=== PATIENT | female | born 1970 | race Caucasian/White ===

== ENCOUNTER 2016-09-14 18:38 | Emergency (ER) | payer SELFPAY ==
[~2016-09-14] VITALS: Ht 162.6 cm; Wt 53.5 kg
[~2016-09-14 18:38] MED LIST: ALPRAZOLAM0.5 MG PO; BUSPAR15 MG PO; EFFEXOR XR150 MG PO; HYDROCODON-ACE1 EAC7 PO; Keppra PO; LEXAPRO20 MG PO; LIBRIUM25 MG PO; LORAZEPAM1 MG PO; Motrin PO; NAPROXEN500 MG PO; NOHOMEMEDS; REMERON30 M2 PO; RISPERDAL1 MG PO; SEROQUEL300 MG PO; THIAMINE HCL100 MG PO; THORAZINE200 MG PO; TRAZODONE HCL300 MG PO
[2016-09-14 19:57] LABS: HEMATOCRIT 44.9 % (36.0-46.0); MCH 31.9 PG (29.0-34.0); MCHC 33.6 G/DL (30.0-36.0); MCV 94.9 FL (83-99); MEAN PLAT.VOLUME 8.3 uM^3 (9.5-12.4); PLATELET COUNT 420 K/uL (156-360); RBC DIS.WIDTH-CV 13.9 % (11.8-14.6); RBC DIS.WIDTH-SD 49.1 % (39-53); RED BLOOD COUNT 4.73 M/uL (3.80-5.20); WHITE BLOOD COUNT 6.8 K/uL (4.1-10.2)
[2016-09-14 20:09] LABS: CHLORIDE 106 mEq/L (99-109); POTASSIUM 4.4 mEq/L (3.7-5.4); SODIUM 144 mEq/L (136-147)
[2016-09-14 20:11] LABS: GLUCOSE 107 mg/dL (70-99)
[2016-09-14 20:12] LABS: ANION GAP 12 MEQ/L (2-14)
[2016-09-14 20:15] LABS: GFR ESTIMATE (CALCULATED) > 59 mL/min/; UREA NITROGEN (BUN) 13 mg/dL (9-23)
[2016-09-14 20:18] LABS: TROP-I INTERPRETATION NEGATIVE; TROPONIN-I < 0.01 ng/mL (0.0-0.30)
[2016-09-14 21:50] LABS: ADD MIUA? YES; BILIRUBIN NEGATIVE; BLOOD MODERATE; COLOR STRAW ((YELLOW)); GLUCOSE (STRIP) NEGATIVE; KETONES NEGATIVE; LEUKOCYTES NEGATIVE; NITRITE NEGATIVE; PROTEIN (STRIP) 30; SPECIFIC GRAVITY 1.012 (1.000-1.030); UROBILINOGEN 0.2 MG/DL (0.2-1.0)
[2016-09-14 21:58] LABS: BACTERIA RARE /HPF; EPITHELIAL CELLS RARE /HPF; MUCUS TRACE /LPF; WHITE BLOOD CELLS 0-5 /HPF (0-5)
[2016-09-14 22:03] LABS: AMPHETAMINE NEGATIVE (500 ng/mL); BARBITURATES NEGATIVE (200 ng/mL); BENZODIAZEPINES PRESUMPTIVE POSITIVE (150 ng/mL); COCAINE NEGATIVE (150 ng/mL); INTERNAL CONTROLS VALID? YES; METHADONE NEGATIVE (200 ng/mL); METHAMPHETAMINE NEGATIVE (500 ng/mL); OPIATES (MORPHINE) NEGATIVE (100 ng/mL); OXYCODONE NEGATIVE (100 ng/mL); PHENCYCLIDINE NEGATIVE (25 ng/mL); PROPOXYPHENE NEGATIVE (300 ng/mL); THC CANNABINOIDS NEGATIVE (50 ng/mL); TRICYCLIC ANTIDEPRESSANTS NEGATIVE (300 ng/mL)
[2016-09-14 22:04] LABS: ADD MEDTOX COMMENT Y
[2016-09-14 22:11] VITALS: BP 139/100
[2016-09-14 22:28] LABS: BENZODIAZEPINES QUANT VALUE 0 NG/ML
[2016-09-14 22:32] LABS: BENZODIAZEPINES, URINE SCREEN Negative (200 ng/mL)
== END 2016-09-14 22:36 | disposition home or self-care (01) ==
LOC: EME → EDBD 18:38 → EME 22:36
PROVIDERS: Emergency Medicine
DX: S06.0X0A Concussion without loss of consciousness, initial encounter (principal); M54.2 Cervicalgia; W00.0XXA Fall on same level due to ice and snow, initial encounter; S00.83XA Contusion of other part of head, initial encounter; W19.XXXA Unspecified fall, initial encounter; Y92.002 Bathroom of unspecified non-institutional (private) residence as the place of occurrence of the external cause; F10.229 Alcohol dependence with intoxication, unspecified; F17.200 Nicotine dependence, unspecified, uncomplicated; Y90.8 Blood alcohol level of 240 mg/100 ml or more
CPT/HCPCS: 70450; 72125; 80048; 81003; 84484; 84999; 85027; 87086; 93005; 99281; 99284; G0480

== ENCOUNTER 2016-12-11 19:40 | Emergency (ER) | payer BC ==
[~2016-12-11] VITALS: Ht 152.4 cm; Wt 58.2 kg
[2016-12-11 20:30] LABS: CARBON DIOXIDE (BICARBONATE) 30.6 MEQ/L (20-31)
[2016-12-11 20:31] LABS: BASOPHIL COUNT 0.1 K/uL (0-0.1); EOSINOPHIL (%) 0.9 % (0-5); EOSINOPHIL COUNT 0.1 K/uL (0-0.3); HEMATOCRIT 40.9 % (36.0-46.0); IMMATURE GRANULOCYTE (%) 0.8 % (0.0-0.7); IMMATURE GRANULOCYTE COUNT 0.1 K/uL; INSTRUMENT ABS NEUTROPHIL CT 3.2 K/uL; LYMPHOCYTE COUNT 2.6 K/uL (1.0-2.8); MCH 33.8 PG (29.0-34.0); MCV 96.7 FL (83-99); MEAN PLAT.VOLUME 8.6 uM^3 (9.5-12.4); MONOCYTE (%) 7.9 % (3-12); MONOCYTE COUNT 0.5 K/uL (0-0.8); NEUTROPHIL (%) 49.3 % (45-76); NEUTROPHIL COUNT 3.2 K/uL (1.8-6.4); PLATELET COUNT 326 K/uL (156-360); RBC DIS.WIDTH-CV 12.2 % (11.8-14.6); RBC DIS.WIDTH-SD 43.4 % (39-53); RED BLOOD COUNT 4.23 M/uL (3.80-5.20); WHITE BLOOD COUNT 6.5 K/uL (4.1-10.2)
[2016-12-11 20:41] LABS: CHLORIDE 105 mEq/L (99-109); POTASSIUM 4.1 mEq/L (3.7-5.4); SODIUM 142 mEq/L (136-147)
[2016-12-11 20:43] LABS: GLUCOSE 103 mg/dL (70-99)
[2016-12-11 20:44] LABS: ANION GAP 13 MEQ/L (2-14)
[2016-12-11 20:45] LABS: TOTAL BILIRUBIN 0.2 mg/dL (0.0-1.0)
[2016-12-11 20:46] LABS: SERUM ETHYL ALCOHOL 396 mg/dL
[2016-12-11 20:47] LABS: GFR ESTIMATE (CALCULATED) > 59 mL/min/
[2016-12-11 20:48] LABS: ALKALINE PHOSPHATASE 60 IU/L (3-129)
[2016-12-11 20:49] LABS: UREA NITROGEN (BUN) 22 mg/dL (9-23)
[2016-12-11 20:50] LABS: SALICYLATE < 5.0 MG/DL (15-30)
[2016-12-11 20:52] LABS: LIPASE 59 U/L (1.0-51.0)
[2016-12-11 20:58] LABS: QUANTITATIVE HCG < 4.0 MIU/ML
[2016-12-11 22:36] LABS: ADD MIUA? YES; BILIRUBIN NEGATIVE; BLOOD MODERATE; COLOR YELLOW ((YELLOW)); GLUCOSE (STRIP) NEGATIVE; KETONES 5; LEUKOCYTES NEGATIVE; NITRITE NEGATIVE; PROTEIN (STRIP) NEGATIVE; SPECIFIC GRAVITY 1.015 (1.000-1.030); UROBILINOGEN 0.2 MG/DL (0.2-1.0)
[2016-12-11 22:46] LABS: BACTERIA NONE SEEN /HPF; EPITHELIAL CELLS 1+ /HPF; HYALINE CASTS 0-5 /LPF; MUCUS NONE SEEN /LPF; UCUL ADDED? NO; WHITE BLOOD CELLS 0-5 /HPF (0-5)
[2016-12-11 22:50] LABS: AMPHETAMINE NEGATIVE (500 ng/mL); BARBITURATES NEGATIVE (200 ng/mL); BENZODIAZEPINES NEGATIVE (150 ng/mL); COCAINE NEGATIVE (150 ng/mL); INTERNAL CONTROLS VALID? YES; METHADONE NEGATIVE (200 ng/mL); METHAMPHETAMINE NEGATIVE (500 ng/mL); OPIATES (MORPHINE) NEGATIVE (100 ng/mL); OXYCODONE NEGATIVE (100 ng/mL); PHENCYCLIDINE NEGATIVE (25 ng/mL); PROPOXYPHENE NEGATIVE (300 ng/mL); THC CANNABINOIDS NEGATIVE (50 ng/mL); TRICYCLIC ANTIDEPRESSANTS NEGATIVE (300 ng/mL)
[2016-12-12 01:32] VITALS: BP 139/93
== END 2016-12-12 01:33 | disposition home or self-care (01) ==
LOC: EME 19:40
PROVIDERS: Emergency Medicine
DX: F10.229 Alcohol dependence with intoxication, unspecified (principal); T50.991A Poisoning by other drugs, medicaments and biological substances, accidental (unintentional), initial encounter; R41.82 Altered mental status, unspecified; Y92.009 Unspecified place in unspecified non-institutional (private) residence as the place of occurrence of the external cause; Y90.8 Blood alcohol level of 240 mg/100 ml or more; F17.200 Nicotine dependence, unspecified, uncomplicated
CPT/HCPCS: 70450; 80053; 81003; 82803; 83690; 83735; 84702; 85025; 93005; 99281; 99285; G0480; J2060; J3411; J3475; J7030

== ENCOUNTER 2017-01-17 11:47 | Emergency (ER) | payer SELFPAY ==
[~2017-01-17] VITALS: Ht 162.6 cm; Wt 50.0 kg
[2017-01-17 12:26] LABS: EOSINOPHIL (%) 0 % (0-5); HEMATOCRIT 30.8 % (36.0-46.0); IMMATURE GRANULOCYTE (%) 0.6 % (0.0-0.7); LYMPHOCYTE COUNT 0.4 K/uL (1.0-2.8); MCH 33.1 PG (29.0-34.0); MCHC 35.1 G/DL (30.0-36.0); MCV 94.5 FL (83-99); MEAN PLAT.VOLUME 9.2 uM^3 (9.5-12.4); MONOCYTE (%) 14.7 % (3-12); MONOCYTE COUNT 0.8 K/uL (0-0.8); NEUTROPHIL (%) 76.8 % (45-76); PLATELET COUNT 86 K/uL (156-360); RBC DIS.WIDTH-CV 14.9 % (11.8-14.6); RBC DIS.WIDTH-SD 50.4 % (39-53); RED BLOOD COUNT 3.26 M/uL (3.80-5.20); WHITE BLOOD COUNT 5.2 K/uL (4.1-10.2)
[2017-01-17 12:39] LABS: CHLORIDE 95 mEq/L (99-109); SODIUM 132 mEq/L (136-147)
[2017-01-17 12:40] LABS: GLUCOSE 109 mg/dL (70-99)
[2017-01-17 12:42] LABS: ANION GAP 18 MEQ/L (2-14)
[2017-01-17 12:44] LABS: GFR ESTIMATE (CALCULATED) > 59 mL/min/; SERUM ETHYL ALCOHOL < 10 mg/dL
[2017-01-17 12:45] LABS: UREA NITROGEN (BUN) 17 mg/dL (9-23)
[2017-01-17 12:52] LABS: QUANTITATIVE HCG < 4.0 MIU/ML
[2017-01-17] MEDS ORDERED: LIBRIUM25 MG PO (17:10)
[2017-01-17] MEDS ORDERED: THIAMINE HCL100 MG PO (17:10)
[2017-01-17 19:13] VITALS: BP 114/99
== END 2017-01-17 19:28 | disposition home or self-care (01) ==
LOC: EME 11:47
PROVIDERS: Emergency Medicine
DX: F10.239 Alcohol dependence with withdrawal, unspecified (principal); D64.9 Anemia, unspecified; Z87.891 Personal history of nicotine dependence
CPT/HCPCS: 80048; 81003; 84702; 85025; 99281; 99285; G0480; J2060; J2405; J3411; J3475

== ENCOUNTER 2017-01-20 16:10 | Inpatient (IN) | payer OTHER ==
[~2017-01-20] VITALS: Ht 162.6 cm; Wt 53.4 kg
[2017-01-20 17:33] LABS: BASOPHIL COUNT 0.1 K/uL (0-0.1); EOSINOPHIL (%) 2.5 % (0-5); EOSINOPHIL COUNT 0.1 K/uL (0-0.3); IMMATURE GRANULOCYTE COUNT 0.1 K/uL; INSTRUMENT ABS NEUTROPHIL CT 2.1 K/uL; MCH 32.5 PG (29.0-34.0); MCHC 34.1 G/DL (30.0-36.0); MCV 95.2 FL (83-99); MEAN PLAT.VOLUME 9.7 uM^3 (9.5-12.4); MONOCYTE (%) 9.6 % (3-12); MONOCYTE COUNT 0.5 K/uL (0-0.8); NEUTROPHIL (%) 43.9 % (45-76); NEUTROPHIL COUNT 2.1 K/uL (1.8-6.4); RBC DIS.WIDTH-CV 15.4 % (11.8-14.6); RBC DIS.WIDTH-SD 52.9 % (39-53); RED BLOOD COUNT 3.57 M/uL (3.80-5.20); WHITE BLOOD COUNT 4.9 K/uL (4.1-10.2)
[2017-01-20 17:34] LABS: PLATELET COUNT 134 K/uL (156-360)
[2017-01-20 17:44] LABS: CHLORIDE 101 mEq/L (99-109)
[2017-01-20 17:47] LABS: GLUCOSE 89 mg/dL (70-99)
[2017-01-20 17:48] LABS: ANION GAP 12 MEQ/L (2-14); TOTAL BILIRUBIN 0.6 mg/dL (0.0-1.0)
[2017-01-20 17:49] LABS: SERUM ETHYL ALCOHOL < 10 mg/dL
[2017-01-20 17:50] LABS: ALKALINE PHOSPHATASE 101 IU/L (3-129); GFR ESTIMATE (CALCULATED) > 59 mL/min/
[2017-01-20 17:51] LABS: UREA NITROGEN (BUN) 12 mg/dL (9-23)
[2017-01-20 17:54] LABS: TROP-I INTERPRETATION NEGATIVE; TROPONIN-I < 0.01 ng/mL (0.0-0.30)
[2017-01-20 17:57] LABS: POTASSIUM 2.6 mEq/L (3.7-5.4); SODIUM 140 mEq/L (136-147)
[2017-01-20] MEDS ORDERED: TRAZODONE HCL300 MG PO (18:21)
[2017-01-20] MEDS ORDERED: REMERON45 MG PO (18:21)
[2017-01-20 20:01] LABS: MAGNESIUM 1.6 mg/dL (1.3-2.7)
[2017-01-20 20:09] LABS: LIPASE 273 U/L (1.0-51.0)
[2017-01-20 21:21] VITALS: BP 111/75
[2017-01-20 22:34] LABS: AMPHETAMINES QUANT VALUE 0 NG/ML; BARBITUATES QUANT VALUE 0 NG/ML; BENZODIAZEPINES, URINE SCREEN POSITIVE (200 ng/mL); MARIJUANA QUANT VALUE 0 NG/ML; OPIATES QUANTITATIVE VALUE 0 NG/ML; PHENCYCLIDINE QUANT VALUE 0 NG/ML
[2017-01-21 06:14] LABS: MAGNESIUM 1.9 mg/dl (1.3-2.7)
[2017-01-21 08:12] LABS: ANION GAP 12 MEQ/L (2-14); CHLORIDE 108 MEQ/L (99-109); GFR ESTIMATE (CALCULATED) > 59 mL/min/; GLUCOSE 94 mg/dL (70-99); POTASSIUM 3.1 MEQ/L (3.7-5.4); SODIUM 143 MEQ/L (136-147); UREA NITROGEN (BUN) 9 mg/dL (9-23)
[2017-01-21 08:24] LABS: HEMATOCRIT 28.6 % (36.0-46.0); MCH 32.8 PG (29.0-34.0); MCHC 33.6 G/DL (30.0-36.0); MCV 97.6 FL (83-99); MEAN PLAT.VOLUME 10.4 uM^3 (9.5-12.4); PLATELET COUNT 148 K/uL (156-360); RBC DIS.WIDTH-CV 16.1 % (11.8-14.6); RBC DIS.WIDTH-SD 55.8 % (39-53); RED BLOOD COUNT 2.93 M/uL (3.80-5.20); WHITE BLOOD COUNT 6.1 K/uL (4.1-10.2)
[2017-01-21 09:00] VITALS: BP 123/89
[2017-01-21 11:00] VITALS: BP 129/88
[2017-01-21 19:56] VITALS: BP 102/63
[2017-01-22 07:06] LABS: HEMATOCRIT 28.5 % (36.0-46.0); MCH 32.8 PG (29.0-34.0); MCV 99.3 FL (83-99); MEAN PLAT.VOLUME 9.4 uM^3 (9.5-12.4); PLATELET COUNT 185 K/uL (156-360); RBC DIS.WIDTH-SD 59.4 % (39-53); RED BLOOD COUNT 2.87 M/uL (3.80-5.20); WHITE BLOOD COUNT 5.2 K/uL (4.1-10.2)
[2017-01-22 07:31] VITALS: BP 115/71
[2017-01-22 07:31] LABS: ANION GAP 7 MEQ/L (2-14); CHLORIDE 111 MEQ/L (99-109); GFR ESTIMATE (CALCULATED) > 59 mL/min/; GLUCOSE 89 mg/dL (70-99); LIPASE 282 U/L (1.0-51.0); SAMPLE HEMOLYSIS CHECK 0; SAMPLE ICTERIC CHECK 0; SAMPLE LIPEMIA CHECK 0; SODIUM 143 MEQ/L (136-147); UREA NITROGEN (BUN) 11 mg/dL (9-23)
[2017-01-22 07:34] LABS: POTASSIUM 4.3 MEQ/L (3.7-5.4)
[2017-01-22] MEDS ORDERED: FOLIC ACID1 MG PO (10:45)
[2017-01-22] MEDS ORDERED: VITAMIN B-1100 MG PO (10:46)
[2017-01-22] MEDS ORDERED: THERAGRAN1 TABLET PO (10:46)
[2017-01-22] MEDS ORDERED: LIBRIUM25 MG PO (10:49)
== END 2017-01-22 13:30 | disposition home or self-care (01) | DRG 439 ==
LOC: EME 16:10 → EDOF 19:38 → 5SOUTH 19:38
PROVIDERS: Emergency Medicine; Internal Medicine; Nurse Practitioner Adult Health
PROC: HZ2ZZZZ Detoxification Services for Substance Abuse Treatment (ICD-10-PCS; principal; 2017-01-20)
DX: K85.81 Other acute pancreatitis with uninfected necrosis (principal); F10.231 Alcohol dependence with withdrawal delirium; F33.9 Major depressive disorder, recurrent, unspecified; E44.1 Mild protein-calorie malnutrition; E87.6 Hypokalemia; S90.512A Abrasion, left ankle, initial encounter; S40.211A Abrasion of right shoulder, initial encounter; F41.9 Anxiety disorder, unspecified; F43.20 Adjustment disorder, unspecified; G40.909 Epilepsy, unspecified, not intractable, without status epilepticus; W18.30XA Fall on same level, unspecified, initial encounter; Y92.9 Unspecified place or not applicable; Z86.59 Personal history of other mental and behavioral disorders; Z87.01 Personal history of pneumonia (recurrent); Z88.2 Allergy status to sulfonamides; Z68.20 Body mass index [BMI] 20.0-20.9, adult; Z56.0 Unemployment, unspecified; Z91.81 History of falling; Y90.0 Blood alcohol level of less than 20 mg/100 ml
CPT/HCPCS: 70450; 71010; 80048; 80053; 80306 90; 81003; 83690; 83735; 84484; 84702; 85025; 85027; 93005; 99281; 99285; G0480; J1650; J1885; J2060; J2405; J3411; J3475; J3480; J7030

== ENCOUNTER 2017-01-28 10:38 | Emergency (ER) | payer OTHER ==
[~2017-01-28] VITALS: Ht 162.6 cm; Wt 54.3 kg
[~2017-01-28 10:38] MED LIST changes: +FOLIC ACID1 MG PO; +REMERON45 MG PO; +THERAGRAN1 TABLET PO; +VITAMIN B-1100 MG PO
[2017-01-28 11:17] LABS: BASOPHIL COUNT 0.1 K/uL (0-0.1); EOSINOPHIL (%) 1.5 % (0-5); EOSINOPHIL COUNT 0.1 K/uL (0-0.3); HEMATOCRIT 33.4 % (36.0-46.0); IMMATURE GRANULOCYTE (%) 0.4 % (0.0-0.7); INSTRUMENT ABS NEUTROPHIL CT 3.3 K/uL; LYMPHOCYTE COUNT 3.1 K/uL (1.0-2.8); MCH 33.4 PG (29.0-34.0); MCHC 32.9 G/DL (30.0-36.0); MCV 101.5 FL (83-99); MEAN PLAT.VOLUME 8.7 uM^3 (9.5-12.4); MONOCYTE (%) 9.3 % (3-12); MONOCYTE COUNT 0.7 K/uL (0-0.8); NEUTROPHIL (%) 44.6 % (45-76); NEUTROPHIL COUNT 3.3 K/uL (1.8-6.4); RBC DIS.WIDTH-CV 17.3 % (11.8-14.6); RBC DIS.WIDTH-SD 63.4 % (39-53); RED BLOOD COUNT 3.29 M/uL (3.80-5.20); WHITE BLOOD COUNT 7.4 K/uL (4.1-10.2)
[2017-01-28 11:18] LABS: PLATELET COUNT 570 K/uL (156-360)
[2017-01-28 11:34] LABS: CHLORIDE 107 mEq/L (99-109); POTASSIUM 3.9 mEq/L (3.7-5.4); SODIUM 145 mEq/L (136-147)
[2017-01-28 11:35] LABS: GLUCOSE 97 mg/dL (70-99)
[2017-01-28 11:37] LABS: ANION GAP 11 MEQ/L (2-14)
[2017-01-28 11:38] LABS: SERUM ETHYL ALCOHOL 320 mg/dL
[2017-01-28 11:39] LABS: GFR ESTIMATE (CALCULATED) > 59 mL/min/
[2017-01-28 11:40] LABS: UREA NITROGEN (BUN) 16 mg/dL (9-23)
[2017-01-28 13:09] LABS: ADD MIUA? YES; BILIRUBIN NEGATIVE; BLOOD SMALL; COLOR STRAW ((YELLOW)); GLUCOSE (STRIP) NEGATIVE; KETONES NEGATIVE; LEUKOCYTES NEGATIVE; NITRITE NEGATIVE; PROTEIN (STRIP) NEGATIVE; UROBILINOGEN 0.2 MG/DL (0.2-1.0)
[2017-01-28 13:11] LABS: BACTERIA NONE SEEN /HPF; EPITHELIAL CELLS RARE /HPF; MUCUS NONE SEEN /LPF; RED BLOOD CELLS 0-5 /HPF (0-5); WHITE BLOOD CELLS 0-5 /HPF (0-5)
[2017-01-28 13:19] LABS: ADD MEDTOX COMMENT Y; AMPHETAMINE NEGATIVE (500 ng/mL); BARBITURATES NEGATIVE (200 ng/mL); BENZODIAZEPINES PRESUMPTIVE POSITIVE (150 ng/mL); COCAINE NEGATIVE (150 ng/mL); INTERNAL CONTROLS VALID? YES; METHADONE NEGATIVE (200 ng/mL); METHAMPHETAMINE NEGATIVE (500 ng/mL); OPIATES (MORPHINE) NEGATIVE (100 ng/mL); OXYCODONE NEGATIVE (100 ng/mL); PHENCYCLIDINE NEGATIVE (25 ng/mL); PROPOXYPHENE NEGATIVE (300 ng/mL); THC CANNABINOIDS NEGATIVE (50 ng/mL); TRICYCLIC ANTIDEPRESSANTS NEGATIVE (300 ng/mL)
[2017-01-28 14:11] LABS: BENZODIAZEPINES, URINE SCREEN POSITIVE (200 ng/mL)
[2017-01-29 01:06] VITALS: BP 143/100
== END 2017-01-29 01:08 | disposition home or self-care (01) ==
LOC: EME 10:38
PROVIDERS: Emergency Medicine
DX: F10.129 Alcohol abuse with intoxication, unspecified (principal); Y90.8 Blood alcohol level of 240 mg/100 ml or more; S00.83XA Contusion of other part of head, initial encounter; W19.XXXA Unspecified fall, initial encounter; Z87.891 Personal history of nicotine dependence
CPT/HCPCS: 70450; 70486; 80048; 81003; 84999; 85025; 90839; 99281; 99285; G0480

== ENCOUNTER 2017-03-06 13:13 | Inpatient (IN) | payer OTHER ==
[~2017-03-06] VITALS: Ht 160 cm; Wt 49.0 kg
[2017-03-06 14:53] LABS: HEMATOCRIT 31.5 % (36.0-46.0); MCHC 34.6 G/DL (30.0-36.0); MCV 101.3 FL (83-99); MEAN PLAT.VOLUME 8.6 uM^3 (9.5-12.4); PLATELET COUNT 161 K/uL (156-360); RBC DIS.WIDTH-CV 13.5 % (11.8-14.6); RBC DIS.WIDTH-SD 49.7 % (39-53); RED BLOOD COUNT 3.11 M/uL (3.80-5.20); WHITE BLOOD COUNT 12.8 K/uL (4.1-10.2)
[2017-03-06 15:02] LABS: CHLORIDE 90 mEq/L (99-109); POTASSIUM 5.3 mEq/L (3.7-5.4); SODIUM 128 mEq/L (136-147)
[2017-03-06 15:04] LABS: GLUCOSE 68 mg/dL (70-99)
[2017-03-06 15:05] LABS: ANION GAP 31 MEQ/L (2-14)
[2017-03-06 15:06] LABS: TOTAL BILIRUBIN 0.6 mg/dL (0.0-1.0)
[2017-03-06 15:07] LABS: SERUM ETHYL ALCOHOL < 10 mg/dL
[2017-03-06 15:08] LABS: ALKALINE PHOSPHATASE 94 IU/L (3-129); GFR ESTIMATE (CALCULATED) 17 mL/min/
[2017-03-06 15:09] LABS: UREA NITROGEN (BUN) 43 mg/dL (9-23)
[2017-03-06 15:11] LABS: LIPASE 85 U/L (1.0-51.0)
[2017-03-06 15:11] LABS: ADD MIUA? YES; BILIRUBIN NEGATIVE; BLOOD LARGE; COLOR YELLOW ((YELLOW)); GLUCOSE (STRIP) NEGATIVE; KETONES 80; LEUKOCYTES TRACE; NITRITE NEGATIVE; PROTEIN (STRIP) >=500; SPECIFIC GRAVITY 1.011 (1.000-1.030); UROBILINOGEN 0.2 MG/DL (0.2-1.0)
[2017-03-06 15:20] LABS: AMPHETAMINE NEGATIVE (500 ng/mL); BARBITURATES NEGATIVE (200 ng/mL); BENZODIAZEPINES PRESUMPTIVE POSITIVE (150 ng/mL); COCAINE NEGATIVE (150 ng/mL); INTERNAL CONTROLS VALID? YES; METHADONE NEGATIVE (200 ng/mL); METHAMPHETAMINE NEGATIVE (500 ng/mL); OPIATES (MORPHINE) NEGATIVE (100 ng/mL); OXYCODONE NEGATIVE (100 ng/mL); PHENCYCLIDINE NEGATIVE (25 ng/mL); PROPOXYPHENE NEGATIVE (300 ng/mL); THC CANNABINOIDS NEGATIVE (50 ng/mL); TRICYCLIC ANTIDEPRESSANTS NEGATIVE (300 ng/mL)
[2017-03-06 15:21] LABS: ADD MEDTOX COMMENT Y
[2017-03-06 15:55] LABS: BENZODIAZEPINES, URINE SCREEN POSITIVE (200 ng/mL)
[2017-03-06 16:01] LABS: EPITHELIAL CELLS 1+ /HPF; WHITE BLOOD CELLS 0-5 /HPF (0-5)
[2017-03-06 16:02] LABS: BACTERIA 1+ /HPF; CASTS PRESENT /LPF; CRYSTALS NONE SEEN; FINE GRANULAR CASTS 0-5 /LPF; MUCUS RARE /LPF
[2017-03-06 16:37] LABS: CHLORIDE 98 mEq/L (99-109); POTASSIUM 4.9 mEq/L (3.7-5.4); SODIUM 132 mEq/L (136-147)
[2017-03-06 16:39] LABS: GLUCOSE 74 mg/dL (70-99)
[2017-03-06 16:40] LABS: ANION GAP 28 MEQ/L (2-14)
[2017-03-06 16:43] LABS: GFR ESTIMATE (CALCULATED) 20 mL/min/
[2017-03-06 16:44] LABS: UREA NITROGEN (BUN) 39 mg/dL (9-23)
[2017-03-06 19:23] LABS: MAGNESIUM 1.6 mg/dL (1.3-2.7)
[2017-03-06] MEDS ORDERED: GABAPENTIN100 MG PO (19:57)
[2017-03-06] MEDS ORDERED: OLANZAPINE10 MG PO (19:58)
[2017-03-06] MEDS ORDERED: DESYREL 150 MG150 MG PO (19:59)
[2017-03-06] MEDS ORDERED: MIRTAZAPINE45 MG PO (20:00)
[2017-03-06] MEDS ORDERED: AMBIEN10 MG PO (20:13)
[2017-03-06] MEDS ORDERED: ALPRAZOLAM0.5 MG PO (20:16)
[2017-03-06 21:09] VITALS: BP 95/55
[2017-03-07 00:39] VITALS: BP 95/52
[2017-03-07 00:49] LABS: CHLORIDE 100 mEq/L (99-109); SODIUM 133 mEq/L (136-147)
[2017-03-07 00:53] LABS: ANION GAP 18 MEQ/L (2-14)
[2017-03-07 00:56] LABS: UREA NITROGEN (BUN) 31 mg/dL (9-23)
[2017-03-07 01:00] LABS: GFR ESTIMATE (CALCULATED) 34 mL/min/; GLUCOSE 107 mg/dL (70-99); POTASSIUM 3.8 mEq/L (3.7-5.4)
[2017-03-07 05:58] LABS: MCH 36.1 PG (29.0-34.0); MCV 100.3 FL (83-99); MEAN PLAT.VOLUME 9.8 uM^3 (9.5-12.4); PLATELET COUNT 146 K/uL (156-360); RBC DIS.WIDTH-CV 14.3 % (11.8-14.6); RBC DIS.WIDTH-SD 51.8 % (39-53); RED BLOOD COUNT 2.99 M/uL (3.80-5.20); WHITE BLOOD COUNT 6.6 K/uL (4.1-10.2)
[2017-03-07 06:35] LABS: ANION GAP 16 MEQ/L (2-14); CHLORIDE 103 MEQ/L (99-109); GLUCOSE 96 mg/dL (70-99); POTASSIUM 3.6 MEQ/L (3.7-5.4); SAMPLE HEMOLYSIS CHECK 0; SAMPLE ICTERIC CHECK 0; SAMPLE LIPEMIA CHECK 0; SODIUM 137 MEQ/L (136-147); UREA NITROGEN (BUN) 28 mg/dL (9-23)
[2017-03-07 06:45] LABS: GFR ESTIMATE (CALCULATED) 57 mL/min/
[2017-03-07 08:08] VITALS: BP 108/69
[2017-03-07] MEDS ORDERED: CEFTIN500 MG PO (11:13)
== END 2017-03-07 11:26 | disposition left against medical advice (07) | DRG 894 ==
LOC: EME 13:13 → EDOF 18:41 → 5SOUTH 18:41 → ENRESERV 18:43 → 5SOUTH 20:32
PROVIDERS: Emergency Medicine; Hospitalist
PROC: HZ2ZZZZ Detoxification Services for Substance Abuse Treatment (ICD-10-PCS; principal; 2017-03-06)
PROC: 0HQ0XZZ Repair Scalp Skin, External Approach (ICD-10-PCS; 2017-03-06)
DX: F10.239 Alcohol dependence with withdrawal, unspecified (principal); E87.1 Hypo-osmolality and hyponatremia; Z68.1 Body mass index [BMI] 19.9 or less, adult; E87.2 Acidosis; N17.9 Acute kidney failure, unspecified; N39.0 Urinary tract infection, site not specified; G40.509 Epileptic seizures related to external causes, not intractable, without status epilepticus; Y90.0 Blood alcohol level of less than 20 mg/100 ml; E83.51 Hypocalcemia; F31.9 Bipolar disorder, unspecified; F50.9 Eating disorder, unspecified; K29.20 Alcoholic gastritis without bleeding; K70.9 Alcoholic liver disease, unspecified; S01.01XA Laceration without foreign body of scalp, initial encounter; F41.9 Anxiety disorder, unspecified; W19.XXXA Unspecified fall, initial encounter; R00.0 Tachycardia, unspecified; Z82.49 Family history of ischemic heart disease and other diseases of the circulatory system; Z87.891 Personal history of nicotine dependence; Y92.9 Unspecified place or not applicable
CPT/HCPCS: 36600; 70450; 71250; 72125; 74176; 80048; 80048 91; 80053; 81003; 82803; 83690; 83735; 84443; 84999; 85027; 93005; 99281; 99285; G0480; J0610; J1630; J2060; J2405; J3411; J7030; J7050; S0028

== ENCOUNTER 2017-08-07 15:20 | Emergency (ER) | payer OTHER ==
[~2017-08-07] VITALS: Ht 160 cm; Wt 64.2 kg
[~2017-08-07 15:20] MED LIST changes: +AMBIEN10 MG PO; +CEFTIN500 MG PO; +DESYREL 150 MG150 MG PO; +GABAPENTIN100 MG PO; +MIRTAZAPINE45 MG PO; +OLANZAPINE10 MG PO
[2017-08-07 16:43] VITALS: BP 145/93
== END 2017-08-07 16:30 | disposition left against medical advice (07) ==
LOC: EME 15:20
DX: R51 Headache (principal); Z53.21 Procedure and treatment not carried out due to patient leaving prior to being seen by health care provider; F17.200 Nicotine dependence, unspecified, uncomplicated; F32.9 Major depressive disorder, single episode, unspecified; F41.9 Anxiety disorder, unspecified; Z88.2 Allergy status to sulfonamides
CPT/HCPCS: 99281; 99284

== ENCOUNTER 2017-08-13 08:40 | Emergency (ER) | payer OTHER ==
[~2017-08-13] VITALS: Ht 162.6 cm; Wt 55.2 kg
[2017-08-13 09:07] LABS: BASOPHIL (%) 0.8 % (0-1); EOSINOPHIL COUNT 0.2 K/uL (0-0.3); HEMATOCRIT 39.4 % (36.0-46.0); IMMATURE GRANULOCYTE (%) 0.4 % (0.0-0.7); LYMPHOCYTE (%) 40.8 % (15-42); LYMPHOCYTE COUNT 2.2 K/uL (1.0-2.8); MCH 36.8 PG (29.0-34.0); MCHC 35.5 G/DL (30.0-36.0); MCV 103.7 FL (83-99); MONOCYTE (%) 13.4 % (3-12); MONOCYTE COUNT 0.7 K/uL (0-0.8); NEUTROPHIL (%) 41.6 % (45-76); NEUTROPHIL COUNT 2.2 K/uL (1.8-6.4); PLATELET COUNT 179 K/uL (156-360); RBC DIS.WIDTH-CV 16.4 % (11.8-14.6); RBC DIS.WIDTH-SD 61.8 % (39-53); WHITE BLOOD COUNT 5.3 K/uL (4.1-10.2)
[2017-08-13 09:17] LABS: ALBUMIN 4.6 g/dL (3.2-4.8); CHLORIDE 93 mEq/L (99-109); POTASSIUM 3.2 mEq/L (3.7-5.4); SODIUM 134 mEq/L (136-147)
[2017-08-13 09:20] LABS: GLUCOSE 105 mg/dL (70-99)
[2017-08-13 09:24] LABS: ALKALINE PHOSPHATASE 144 IU/L (3-129); CREATININE 0.9 mg/dL (0.6-1.3); GFR ESTIMATE (CALCULATED) > 59 mL/min/; TOTAL BILIRUBIN 1.1 mg/dL (0.0-1.0); UREA NITROGEN (BUN) 7 mg/dL (9-23)
[2017-08-13 09:25] LABS: AST (GOT) 330 IU/L (2-34)
[2017-08-13 09:26] LABS: ALT (GPT) 179 IU/L (3-49)
[2017-08-13 09:32] LABS: QUANTITATIVE HCG < 4.0 MIU/ML
[2017-08-13 09:34] LABS: SERUM ETHYL ALCOHOL 140 mg/dL
[2017-08-13 11:04] LABS: APPEARANCE SL.HAZY ((CLEAR)); BILIRUBIN NEGATIVE; BLOOD MODERATE; COLOR STRAW ((YELLOW)); GLUCOSE (STRIP) NEGATIVE; KETONES NEGATIVE; LEUKOCYTES NEGATIVE; NITRITE NEGATIVE; PROTEIN (STRIP) NEGATIVE; UROBILINOGEN 0.2 MG/DL (0.2-1.0)
[2017-08-13 11:10] LABS: BACTERIA NONE SEEN /HPF; EPITHELIAL CELLS 1+ /HPF; MUCUS NONE SEEN /LPF; RED BLOOD CELLS 0-5 /HPF (0-5); UCUL ADDED? NO; WHITE BLOOD CELLS 0-5 /HPF (0-5)
[2017-08-13] MEDS ORDERED: ZOFRAN ODT4 MG PO (11:25)
[2017-08-13 11:36] VITALS: BP 129/72
== END 2017-08-13 11:37 | disposition home or self-care (01) ==
LOC: EME 08:40
PROVIDERS: Physician Assistant
DX: R19.7 Diarrhea, unspecified (principal); R74.8 Abnormal levels of other serum enzymes; E87.6 Hypokalemia; F41.9 Anxiety disorder, unspecified; F32.9 Major depressive disorder, single episode, unspecified; F17.200 Nicotine dependence, unspecified, uncomplicated; Z88.2 Allergy status to sulfonamides
CPT/HCPCS: 74177; 80053; 81003; 84702; 85025; 93005; 99281; 99285; G0480; J2405; J7030

== ENCOUNTER 2017-09-16 15:52 | Emergency (ER) | payer OTHER ==
[~2017-09-16] VITALS: Ht 162.6 cm; Wt 57.2 kg
[~2017-09-16 15:52] MED LIST changes: +ZOFRAN ODT4 MG PO
[2017-09-16 16:22] LABS: HEMATOCRIT 35.7 % (36.0-46.0); HEMOGLOBIN 12.8 G/DL (11.9-15.5); MCH 38.2 PG (29.0-34.0); MCHC 35.9 G/DL (30.0-36.0); MCV 106.6 FL (83-99); PLATELET COUNT 222 K/uL (156-360); RBC DIS.WIDTH-CV 15.4 % (11.8-14.6); RBC DIS.WIDTH-SD 60.5 % (39-53); RED BLOOD COUNT 3.35 M/uL (3.80-5.20); WHITE BLOOD COUNT 11.2 K/uL (4.1-10.2)
[2017-09-16 16:36] LABS: ALBUMIN 3.6 g/dL (3.2-4.8); CHLORIDE 104 mEq/L (99-109); POTASSIUM 3.8 mEq/L (3.7-5.4); SODIUM 141 mEq/L (136-147)
[2017-09-16 16:38] LABS: GLUCOSE 99 mg/dL (70-99)
[2017-09-16 16:40] LABS: TOTAL BILIRUBIN 0.6 mg/dL (0.0-1.0)
[2017-09-16 16:42] LABS: ALKALINE PHOSPHATASE 170 IU/L (3-129); CREATININE 0.8 mg/dL (0.6-1.3); GFR ESTIMATE (CALCULATED) > 59 mL/min/
[2017-09-16 16:43] LABS: UREA NITROGEN (BUN) 6 mg/dL (9-23)
[2017-09-16 16:44] LABS: AST (GOT) 255 IU/L (2-34)
[2017-09-16 16:45] LABS: ALT (GPT) 128 IU/L (3-49); LIPASE 48 U/L (1.0-51.0)
[2017-09-16 16:51] LABS: QUANTITATIVE HCG < 4.0 MIU/ML
[2017-09-16] MEDS ORDERED: ZOFRAN4 MG PO (17:20)
[2017-09-16 17:22] LABS: APPEARANCE CLEAR ((CLEAR)); BILIRUBIN NEGATIVE; BLOOD MODERATE; COLOR YELLOW ((YELLOW)); GLUCOSE (STRIP) NEGATIVE; KETONES 20; LEUKOCYTES NEGATIVE; NITRITE NEGATIVE; PROTEIN (STRIP) 100; SPECIFIC GRAVITY 1.013 (1.000-1.030); UROBILINOGEN 0.2 MG/DL (0.2-1.0)
[2017-09-16 17:25] LABS: BACTERIA NONE SEEN /HPF; EPITHELIAL CELLS RARE /HPF; MUCUS 1+ /LPF; UCUL ADDED? NO; WHITE BLOOD CELLS 0-5 /HPF (0-5)
[2017-09-16 17:31] VITALS: BP 136/97
== END 2017-09-16 17:32 | disposition home or self-care (01) ==
LOC: EME 15:52
PROVIDERS: Emergency Medicine
DX: K70.10 Alcoholic hepatitis without ascites (principal); E87.2 Acidosis; R10.9 Unspecified abdominal pain; F32.9 Major depressive disorder, single episode, unspecified; F41.9 Anxiety disorder, unspecified; F17.200 Nicotine dependence, unspecified, uncomplicated; Z88.2 Allergy status to sulfonamides
CPT/HCPCS: 80053; 81003; 83690; 84702; 85027; 99281; 99284; J2060; J2405; J7120

== ENCOUNTER 2017-10-09 15:17 | Inpatient (IN) | payer OTHER ==
[~2017-10-09] VITALS: Ht 162.6 cm; Wt 53.0 kg
[~2017-10-09 15:17] MED LIST changes: +ZOFRAN4 MG PO
[2017-10-09 15:41] LABS: BASOPHIL (%) 0.4 % (0-1); BASOPHIL COUNT 0.1 K/uL (0-0.1); EOSINOPHIL (%) 0 % (0-5); HEMATOCRIT 42.6 % (36.0-46.0); IMMATURE GRANULOCYTE (%) 0.3 % (0.0-0.7); LYMPHOCYTE (%) 6.7 % (15-42); LYMPHOCYTE COUNT 0.8 K/uL (1.0-2.8); MCH 37.5 PG (29.0-34.0); MCHC 35.2 G/DL (30.0-36.0); MCV 106.5 FL (83-99); MONOCYTE (%) 3.5 % (3-12); MONOCYTE COUNT 0.4 K/uL (0-0.8); NEUTROPHIL (%) 89.1 % (45-76); NEUTROPHIL COUNT 10.4 K/uL (1.8-6.4); RBC DIS.WIDTH-CV 13.2 % (11.8-14.6); RBC DIS.WIDTH-SD 51.9 % (39-53); WHITE BLOOD COUNT 11.7 K/uL (4.1-10.2)
[2017-10-09 15:46] LABS: ALBUMIN 4.2 g/dL (3.2-4.8); CHLORIDE 97 mEq/L (99-109); POTASSIUM 4.2 mEq/L (3.7-5.4); SODIUM 138 mEq/L (136-147)
[2017-10-09 15:49] LABS: GLUCOSE 98 mg/dL (70-99); TOTAL PROTEIN 8.5 g/dL (6.4-8.3)
[2017-10-09 15:51] LABS: TOTAL BILIRUBIN 0.7 mg/dL (0.0-1.0)
[2017-10-09 15:52] LABS: ALKALINE PHOSPHATASE 166 IU/L (3-129); CREATININE 0.7 mg/dL (0.6-1.3); GFR ESTIMATE (CALCULATED) > 59 mL/min/
[2017-10-09 15:53] LABS: UREA NITROGEN (BUN) 10 mg/dL (9-23)
[2017-10-09 15:54] LABS: AST (GOT) 474 IU/L (2-34)
[2017-10-09 15:55] LABS: ALT (GPT) 194 IU/L (3-49)
[2017-10-09 15:56] LABS: LIPASE 246 U/L (1.0-51.0)
[2017-10-09 16:08] LABS: SERUM ETHYL ALCOHOL 187 mg/dL
[2017-10-09] MEDS ORDERED: SERTRALINE HCL50 MG PO (16:32)
[2017-10-09 17:08] LABS: MAGNESIUM 1.7 mg/dL (1.3-2.7)
[2017-10-09 17:21] LABS: PLATELET CLUMPS PRESENT - PLATELET COUNT APPEARS ADQ.
[2017-10-09 17:31] LABS: PLATELET COUNT UNABLE TO REPORT K/uL (156-360)
[2017-10-09 18:21] VITALS: BP 126/89
[2017-10-09 19:30] VITALS: BP 132/84
[2017-10-09 23:39] VITALS: BP 89/59
[2017-10-10] VITALS (7 sets, daily range): BP systolic 111–139; BP diastolic 70–91
[2017-10-10 06:21] LABS: HEMATOCRIT 29.5 % (36.0-46.0); MCH 37.3 PG (29.0-34.0); MCHC 35.3 G/DL (30.0-36.0); MCV 105.7 FL (83-99); RBC DIS.WIDTH-CV 13.2 % (11.8-14.6); RBC DIS.WIDTH-SD 50.6 % (39-53); WHITE BLOOD COUNT 6.3 K/uL (4.1-10.2)
[2017-10-10 06:23] LABS: HEMOGLOBIN 10.4 G/DL (11.9-15.5); PLATELET COUNT 65 K/uL (156-360); RED BLOOD COUNT 2.79 M/uL (3.80-5.20)
[2017-10-10 06:31] LABS: CHLORIDE 96 MEQ/L (99-109); CREATININE 0.6 MG/DL (0.6-1.3); GFR ESTIMATE (CALCULATED) > 59 mL/min/; GLUCOSE 83 mg/dL (70-99); SODIUM 134 MEQ/L (136-147); UREA NITROGEN (BUN) 6 mg/dL (9-23)
[2017-10-10 06:34] LABS: POTASSIUM 3.3 MEQ/L (3.7-5.4)
[2017-10-10 09:09] LABS: ALKALINE PHOSPHATASE 96 IU/L (3-129); ALT (GPT) 86 IU/L (3-49); AST (GOT) 210 IU/L (2-34); DIRECT BILIRUBIN 0.4 mg/dL (0.0-0.3); LIPASE 348 U/L (1.0-51.0); TOTAL BILIRUBIN 1.1 MG/DL (0.0-1.0)
[2017-10-10 16:44] LABS: CREATINE KINASE 72 IU/L (1-294)
[2017-10-11 04:05] VITALS: BP 119/74
[2017-10-11 07:21] VITALS: BP 110/76
[2017-10-11 09:35] LABS: BASOPHIL COUNT 0.1 K/uL (0-0.1); EOSINOPHIL (%) 4.3 % (0-5); EOSINOPHIL COUNT 0.2 K/uL (0-0.3); HEMATOCRIT 31.1 % (36.0-46.0); HEMOGLOBIN 10.8 G/DL (11.9-15.5); IMMATURE GRANULOCYTE (%) 0.4 % (0.0-0.7); LYMPHOCYTE (%) 24.7 % (15-42); LYMPHOCYTE COUNT 1.3 K/uL (1.0-2.8); MCH 37.4 PG (29.0-34.0); MCHC 34.7 G/DL (30.0-36.0); MCV 107.6 FL (83-99); MONOCYTE (%) 5.3 % (3-12); MONOCYTE COUNT 0.3 K/uL (0-0.8); NEUTROPHIL (%) 64.3 % (45-76); NEUTROPHIL COUNT 3.3 K/uL (1.8-6.4); PLATELET COUNT 51 K/uL (156-360); RBC DIS.WIDTH-CV 13.1 % (11.8-14.6); RBC DIS.WIDTH-SD 51.4 % (39-53); RED BLOOD COUNT 2.89 M/uL (3.80-5.20); WHITE BLOOD COUNT 5.1 K/uL (4.1-10.2)
[2017-10-11 10:06] LABS: ALKALINE PHOSPHATASE 104 IU/L (3-129); ALT (GPT) 68 IU/L (3-49); AST (GOT) 159 IU/L (2-34); CHLORIDE 104 MEQ/L (99-109); CREATININE 0.4 MG/DL (0.6-1.3); GFR ESTIMATE (CALCULATED) > 59 mL/min/; GLUCOSE 84 mg/dL (70-99); LIPASE 174 U/L (1.0-51.0); MAGNESIUM 1.8 mg/dl (1.3-2.7); POTASSIUM 3.4 MEQ/L (3.7-5.4); SODIUM 138 MEQ/L (136-147); UREA NITROGEN (BUN) 4 mg/dL (9-23)
[2017-10-11 11:08] VITALS: BP 118/80
[2017-10-11] MEDS ORDERED: THIAMINE HCL100 MG PO (12:53)
[2017-10-11] MEDS ORDERED: CHLORDIAZEPOXID25 MG PO (12:53)
[2017-10-11] MEDS ORDERED: FOLIC ACID1 MG PO (12:53)
== END 2017-10-11 14:45 | disposition home or self-care (01) | DRG 439 ==
LOC: EME 15:17 → EDOF 16:05 → 5SOUTH 16:05 → ENRESERV 16:09 → 5SOUTH 18:04
PROVIDERS: Emergency Medicine; Internal Medicine; Physician Assistant
DX: K85.20 Alcohol induced acute pancreatitis without necrosis or infection (principal); E87.6 Hypokalemia; K70.10 Alcoholic hepatitis without ascites; F10.239 Alcohol dependence with withdrawal, unspecified; E87.2 Acidosis; K76.0 Fatty (change of) liver, not elsewhere classified; E83.42 Hypomagnesemia; D69.6 Thrombocytopenia, unspecified; F31.9 Bipolar disorder, unspecified; F41.9 Anxiety disorder, unspecified; R74.0 Nonspecific elevation of levels of transaminase and lactic acid dehydrogenase [LDH]; G40.909 Epilepsy, unspecified, not intractable, without status epilepticus; F17.200 Nicotine dependence, unspecified, uncomplicated; Z86.59 Personal history of other mental and behavioral disorders; D53.9 Nutritional anemia, unspecified
CPT/HCPCS: 74176; 76705; 80048; 80053; 80076; 81003; 81025; 82550; 83605; 83690; 83735; 85025; 85027; 93005; 99281; 99285; G0480; J1650; J2060; J2405; J2765; J3010; J3411; J3475; J3480; J7030; J7042; J7120

== ENCOUNTER 2017-11-13 10:11 | Emergency (ER) | payer OTHER ==
[~2017-11-13] VITALS: Ht 160 cm; Wt 49.0 kg
[~2017-11-13 10:11] MED LIST changes: +CHLORDIAZEPOXID25 MG PO; +SERTRALINE HCL50 MG PO
[2017-11-13 10:40] LABS: BASOPHIL (%) 1.3 % (0-1); BASOPHIL COUNT 0.1 K/uL (0-0.1); EOSINOPHIL (%) 0.3 % (0-5); HEMATOCRIT 41.7 % (36.0-46.0); IMMATURE GRANULOCYTE (%) 0.3 % (0.0-0.7); LYMPHOCYTE (%) 20.9 % (15-42); LYMPHOCYTE COUNT 1.6 K/uL (1.0-2.8); MCH 36.9 PG (29.0-34.0); MCV 102.7 FL (83-99); MONOCYTE (%) 7.2 % (3-12); MONOCYTE COUNT 0.6 K/uL (0-0.8); NEUTROPHIL COUNT 5.5 K/uL (1.8-6.4); PLATELET COUNT 354 K/uL (156-360); RBC DIS.WIDTH-CV 12.5 % (11.8-14.6); RBC DIS.WIDTH-SD 47.5 % (39-53); RED BLOOD COUNT 4.06 M/uL (3.80-5.20); WHITE BLOOD COUNT 7.8 K/uL (4.1-10.2)
[2017-11-13 10:58] LABS: ALBUMIN 4.4 g/dL (3.2-4.8); CHLORIDE 98 mEq/L (99-109); POTASSIUM 5.4 mEq/L (3.7-5.4); SODIUM 137 mEq/L (136-147)
[2017-11-13 11:00] LABS: GLUCOSE 90 mg/dL (70-99); TOTAL PROTEIN 9.8 g/dL (6.4-8.3)
[2017-11-13 11:02] LABS: TOTAL BILIRUBIN 1.1 mg/dL (0.0-1.0)
[2017-11-13 11:04] LABS: ALKALINE PHOSPHATASE 130 IU/L (3-129); CREATININE 0.9 mg/dL (0.6-1.3); GFR ESTIMATE (CALCULATED) > 59 mL/min/
[2017-11-13 11:05] LABS: UREA NITROGEN (BUN) 8 mg/dL (9-23)
[2017-11-13 11:06] LABS: AST (GOT) 170 IU/L (2-34); DIRECT BILIRUBIN 0.3 mg/dL (0.0-0.3)
[2017-11-13 11:07] LABS: ALT (GPT) 96 IU/L (3-49); LIPASE 33 U/L (1.0-51.0)
[2017-11-13 11:14] LABS: TROP-I INTERPRETATION NEGATIVE; TROPONIN-I < 0.01 ng/mL (0.0-0.30)
[2017-11-13] MEDS ORDERED: LIBRIUM25 MG PO (12:27)
[2017-11-13] MEDS ORDERED: ZOFRAN4 MG PO (12:27)
[2017-11-13] MEDS ORDERED: THIAMINE HCL100 MG PO (12:27)
[2017-11-13 13:26] VITALS: BP 110/78
== END 2017-11-13 13:27 | disposition home or self-care (01) ==
LOC: EME 10:11
PROVIDERS: Emergency Medicine
DX: R11.2 Nausea with vomiting, unspecified (principal); F10.20 Alcohol dependence, uncomplicated; E86.0 Dehydration; Y90.9 Presence of alcohol in blood, level not specified; Z87.19 Personal history of other diseases of the digestive system; F32.9 Major depressive disorder, single episode, unspecified; F17.200 Nicotine dependence, unspecified, uncomplicated; F41.9 Anxiety disorder, unspecified; Z86.73 Personal history of transient ischemic attack (TIA), and cerebral infarction without residual deficits; Z88.2 Allergy status to sulfonamides; Z86.69 Personal history of other diseases of the nervous system and sense organs
CPT/HCPCS: 71045; 80048; 80076; 83690; 84484; 85025; 85379; 93005; 99281; 99285; J2060; J2405; J3010; J7030